=== PATIENT | female | born 1980 | race Caucasian/White ===

== ENCOUNTER 2017-08-09 09:04 | Emergency (ER) | payer BC ==
[2017-08-09] MEDS ORDERED: ONDANSETRON 4 MG/2 ML VIAL IVP ONE (09:30)
[2017-08-09] MEDS ORDERED: fentaNYL 100 MCG/2 ML INJ IVP ONE (09:30)
[2017-08-09] MEDS ORDERED: NS 500 ML IV ONE (09:30)
--- NOTE | 2017-08-09 09:34 | EDPHY ---
H & P Time Seen by Provider: 08/09/17 09:11 HPI/ROS: CHIEF COMPLAINT: Left lower quadrant pain HISTORY OF PRESENT ILLNESS: The patient is a 37-year-old female who presents emergency department left lower quadrant pain. The patient had a history of endometriosis and sepsis after having her child on 04/03/2016. Although the pain was slightly more diffuse, the quality this pain feels similar. She describes left lower quadrant pain that radiates slightly to her left upper quadrant. She has minimal the back discomfort. No nausea or vomiting. No fevers or chills. No diarrhea. No recent travel. Patient has an IUD in place. She states she has had mild vaginal discharge with no blood. REVIEW OF SYSTEMS: My complete review of systems is negative except as mentioned in the HPI. Past Medical/Surgical History: Includes endometriosis with sepsis, acute renal injury from sepsis, hyponatremia , hypokalemia, palpitations, preeclampsia Past surgical history: Includes appendectomy, ovarian cystectomy Social history: The patient does not smoke Smoking Status: Never smoked Physical Exam: Vitals noted GENERAL: Well-appearing, in no acute distress, alert. HEENT: Eyes normal to inspection, normal pharynx, no signs of dehydration. NECK: No thyromegaly, no lymphadenopathy, supple. RESPIRATORY: Clear to auscultation bilaterally, no rales, rhonchi or wheezing. CVS: Regular rate and rhythm, no rubs, murmurs, or gallops. ABDOMEN: Soft, left lower quadrant tenderness to palpation with no rebound or guarding, nondistended, no organomegaly. BACK: Normal to inspection, no CVA tenderness. SKIN: Normal color, no rash, warm, dry. No pallor. EXTREMITIES: No pedal edema, no joint swelling. NEURO/PSYCH: Alert and oriented, normal mood and affect, normal motor sensory exam. Constitutional: Initial Vital Signs Temperature (C) 36.6 C 08/09/17 09:12 Heart Rate 88 08/09/17 09:12 Respiratory Rate 16 08/09/17 09:12 Blood Pressure 138/98 H 08/09/17 09:12 O2 Sat (%) 96 08/09/17 09:12 O2 Delivery Mode Room Air Allergies/Adverse Reactions: No Known Allergies Allergy (Verified 08/09/17 09:15) Home Medications: Medication Instructions Recorded Cephalexin [Keflex (*)] 500 mg PO QID #12 cap 08/09/17 Cephalexin [Keflex (*)] 500 mg PO QID #12 cap 08/09/17 Hydrocodone/APAP 5/325 [[place] 1 - 2 tab PO Q4 #13 tab 08/09/17 5/325 (RX)] Ondansetron Odt [Zofran Odt 4 mg 4 mg PO Q4PRN PRN #7 tab 08/09/17 (*)] Medical Decision Making - Diagnostics Imaging Results: Imaging Impressions Pelvic/Renal Ultrasound 08/09/17 09:31 Impression: 1. Thickened and enlarged left ovary without torsion. Differential considerations primarily include intraovarian hemorrhage from cyst rupture versus tuboovarian abscess. The patient is reportedly hCG negative. Follow-up imaging may be of benefit, as clinically appropriate. 2. Multiple benign-appearing follicular cysts, right ovary. 3. IUD device in proper location. Results called to Dr. Begum at 11:30 a.m. ED Course/Re-evaluation: In the emergency department I discussed possible etiologies with the patient. I answered all her questions. IV was placed. Laboratory studies and ultrasound were ordered. Patient was given fentanyl 100 mcg IV and Zofran 4 mg IV. Patient's white count was mildly elevated at 11. The rest of her CBC was unremarkable. Chemistry panel was normal. is negative. Her UA showed 5-10 white cells as well as 10-15 white cells. There is positive leuk esterase. FEMALE : Patient has a normal external pelvic exam. No lesions. Speculum exam is notable clear/white discharge with no flow at the cervix. Normal appearing cervix. No lesions or discharge. Bimanual exam: Normal, no tenderness to palpation bilaterally, normal ovaries bilaterally, normal uterus. Ultrasound: Please refer the dictated report by Dr. Lopes. Patient does have an abnormal left ovary. There is blood flow. His [address] Lopes states that the patient potentially could have hemorrhaged into the ovary. Patient has multiple cysts on the right. IUD is in place. I discussed the results with the patient. I answered all her questions. On recheck the patient was comfortable. She had mild left lower quadrant tenderness to palpation with no rebound or guarding. I discussed the case with Dr. Pulliam from gynecology. I reviewed the ultrasound results. She recommended the patient follow up in a week for repeat ultrasound and provider visit. I discussed with the patient. Patient feels comfortable discharge. I gave her warnings prior to leaving. She will return with worsening symptoms. Patient was given Keflex in the emergency department for potential urinary tract infection and given a prescription on discharge. Differential Diagnosis: My differential includes but is not limited to ovarian cyst, ovarian torsion, , ectopic , bacteremia, sepsis, diverticulitis, diverticulosis , small-bowel obstruction, perforation - Data Points Laboratory Results: Laboratory Results 08/09/17 09:25 08/09/17 09:25 08/09/17 08/09/17 08/09/17 09:47 09:25 09:25 WBC RBC Hgb Hct MCV MCH MCHC RDW Plt Count MPV Neut % (Auto) Lymph % (Auto) [place] % (Auto) Eos % (Auto) Baso % (Auto) Nucleat RBC Rel Count Absolute Neuts (auto) Absolute Lymphs (auto) Absolute Monos (auto) Absolute Eos (auto) Absolute Basos (auto) Absolute Nucleated RBC Immature Gran % Immature Gran # Sodium 141 mEq/L mEq/L (135-145) Potassium 4.0 mEq/L mEq/L (3.5-5.2) Chloride 107 mEq/L mEq/L (97-110) Carbon Dioxide 26 mEq/l mEq/l (22-31) Anion Gap 8 mEq/L mEq/L (8-16) BUN 14 mg/dL mg/dL (7-23) Creatinine 0.6 mg/dL mg/dL (0.6-1.0) Estimated GFR > 60 Glucose 84 mg/dL mg/dL (70-100) Calcium 8.8 mg/dL mg/dL (8.5-10.4) Beta HCG, Qual NEGATIVE Urine Color YELLOW Urine Appearance CLEAR Urine pH 7.0 (5.0-7.5) Ur Specific [place] 1.015 (1.002-1.030) Urine Protein NEGATIVE (NEGATIVE) Urine Ketones NEGATIVE (NEGATIVE) Urine Blood 1+ H (NEGATIVE) Urine Nitrate NEGATIVE (NEGATIVE) Urine Bilirubin NEGATIVE (NEGATIVE) Urine Urobilinogen 0.2 EU EU (0.2-1.0) Ur Leukocyte Esterase TRACE H (NEGATIVE) Urine RBC 10-15 /hpf H /hpf (0-3) Urine WBC 5-10 /hpf H /hpf (0-3) Ur Epithelial Cells 3+ /lpf H /lpf (NONE-1+) Urine Bacteria 2+ /hpf H /hpf (NONE SEEN) Urine Mucus 2+ /lpf H /lpf (NONE-1+) Urine Glucose NEGATIVE (NEGATIVE) 08/09/17 09:25 WBC 11.24 10^3/uL H 10^3/uL (3.80-9.50) RBC 4.84 10^6/uL 10^6/uL (4.18-5.33) Hgb 14.2 g/dL g/dL (12.6-16.3) Hct 42.0 % % (38.0-47.0) MCV 86.8 fL fL (81.5-99.8) MCH 29.3 pg pg (27.9-34.1) MCHC 33.8 g/dL g/dL (32.4-36.7) RDW 13.0 % % (11.5-15.2) Plt Count 293 10^3/uL 10^3/uL (150-400) MPV 9.2 fL fL (8.7-11.7) Neut % (Auto) 69.3 % % (39.3-74.2) Lymph % (Auto) 23.9 % % (15.0-45.0) [place] % (Auto) 4.9 % % (4.5-13.0) Eos % (Auto) 1.1 % % (0.6-7.6) Baso % (Auto) 0.5 % % (0.3-1.7) Nucleat RBC Rel Count 0.0 % % (0.0-0.2) Absolute Neuts (auto) 7.79 10^3/uL H 10^3/uL (1.70-6.50) Absolute Lymphs (auto) 2.69 10^3/uL 10^3/uL (1.00-3.00) Absolute Monos (auto) 0.55 10^3/uL 10^3/uL (0.30-0.80) Absolute Eos (auto) 0.12 10^3/uL 10^3/uL (0.03-0.40) Absolute Basos (auto) 0.06 10^3/uL 10^3/uL (0.02-0.10) Absolute Nucleated RBC 0.00 10^3/uL 10^3/uL (0-0.01) Immature Gran % 0.3 % % (0.0-1.1) Immature Gran # 0.03 10^3/uL 10^3/uL (0.00-0.10) Sodium Potassium Chloride Carbon Dioxide Anion Gap BUN Creatinine Estimated GFR Glucose Calcium Beta HCG, Qual Urine Color Urine Appearance Urine pH Ur Specific [place] Urine Protein Urine Ketones Urine Blood Urine Nitrate Urine Bilirubin Urine Urobilinogen Ur Leukocyte Esterase Urine RBC Urine WBC Ur Epithelial Cells Urine Bacteria Urine Mucus Urine Glucose Medications Given: Discontinued Medications Cephalexin HCl (Keflex) 500 mg PO EDNOW ONE PRN Reason: Protocol Stop: 08/09/17 12:18 Last Admin: 08/09/17 12:25 Dose: 500 mg Fentanyl (Sublimaze) 100 mcg IVP EDNOW ONE Stop: 08/09/17 09:31 Last Admin: 08/09/17 09:35 Dose: 100 mcg Sodium Chloride (Ns) 500 mls @ 0 mls/hr IV EDNOW ONE; Wide Open PRN Reason: Protocol Stop: 08/09/17 09:31 Last Admin: 08/09/17 09:35 Dose: 500 mls Ondansetron HCl (Zofran) 4 mg IVP EDNOW ONE Stop: 08/09/17 09:31 Last Admin: 08/09/17 09:35 Dose: 4 mg Departure - Departure Disposition: Home, Routine, Self-Care Clinical Impression: Ovarian bleed, left Abdominal pain Qualifiers: Abdominal location: left lower quadrant Qualified Code(s): R10.32 - Left lower quadrant pain Urinary tract infection Qualifiers: Hematuria presence: with hematuria Condition: Good Instructions: Urinary Tract Infection in Women (ED), Abdominal Pain (ED) Additional Instructions: Your ultrasound showed abnormal left ovary. This will need close follow-up with gynecology. You need a repeat ultrasound and evaluation by provider. I gave the contact information for Dr. Lyndsay Pulliam. I spoke with her on the phone regarding her findings. Return with increasing pain, fever, vomiting or any other concerns. You have been given a prescription of Keflex for urinary tract infection. Take the entire course of antibiotics. Referrals: Lyndsay Pulliam MD [Medical Doctor] - 5-7 days, call for appt. Prescriptions: Cephalexin [Keflex (*)] 500 mg PO QID #12 cap Cephalexin [Keflex (*)] 500 mg PO QID #12 cap Hydrocodone/APAP 5/325 [[place] 5/325 (RX)] 1 - 2 tab PO Q4 #13 tab Ondansetron Odt [Zofran Odt 4 mg (*)] 4 mg PO Q4PRN PRN #7 tab PRN Reason: For Nausea & Vomiting
[2017-08-09 09:36] LABS: PLATELET COUNT 293 10^3/uL (150-400)
[2017-08-09] MEDS ORDERED: CEPHALEXIN 500 MG CAP PO ONE (12:17)
[2017-08-09 12:30] VITALS: BP 116/75
== END 2017-08-09 12:30 | disposition home or self-care (01) ==
LOC: CED 09:04
DX: N83.8 Other noninflammatory disorders of ovary, fallopian tube and broad ligament (principal); N39.0 Urinary tract infection, site not specified; B96.89 Other specified bacterial agents as the cause of diseases classified elsewhere
CPT/HCPCS: 76856-PO; 80048-PO; 81003-PO; 81015-PO; 84703-PO; 85025-PO; 96374; J2405; J3010